=== PATIENT | female | born 1960 | race Caucasian/White ===

== ENCOUNTER 2016-06-08 04:18 | Inpatient (IN) | payer OTHER, MEDICARE ==
[~2016-06-08] VITALS: Ht 180.3 cm; Wt 113.4 kg
[~2016-06-08 04:18] MED LIST: ALPRAZOLAM0.25 M1 PO; COLACE100 M1 PO; COUMADIN5 M2 PO; HYDROMORPHONE HC2 M1 PO; LISINOPRIL20 M1 PO; MIRALAX17 G1 PO; SENNA8.6 M3 PO; TRAZODONE HCL50 M1 PO
--- NOTE | 2016-06-08 13:07 | Admission Core Measures ---
Admission Meds I reviewed the following Meds: Current Medications Sig/Montse Start time Last Medication Dose Stop Time Status Admin Alprazolam 0.125 MG QPM 06/08 2200 AC (Xanax) 06/15 2158 Lisinopril 20 MG QPM 06/08 220 AC (Prinivil) Ropivacaine 500 ML ONCE ONE 06/08 1030 AC (NAROPIN) 06/10 0409 ON-Q Ball 1 BAG Trazodone HCl 50 MG QPM 06/08 2199 AC (Desyrel) Vancomycin HCl 2,000 MG ONCE 06/08 0000 CAN Sodium Chloride 500 ML 06/08 2359 (Normal Saline 0.9%) Vancomycin HCl 2,000 MG ONCE 06/08 0000 NR Sodium Chloride 500 ML 06/08 235 (Normal Saline 0.9%) Acute Coronary Syndrome Inclusion Criteria ACS Diagnosis No Inpatient Core Measures LDL Reminder: If No, please order W/I first 24hr of stay Congestive Heart Failure Inclusion Criteria CHF Diagnosis No Cerebrovascular accident Inclusion Criteria CVA/TIA Diagnosis No Inpatient Core Measures Bedside Swallow Eval Reminder: If BSE failed, place ST order Antithrombotic Reminder: Order Antithrombotic Medication by end of day 2 Antithrombotic Reminder: Document Reason Antithrombotic Not ordered by end of day 2 AFIB/Flutter Reminder: If Present, add to problem list AFIB/Flutter Reminder: Order Anticoag Medication for pts with AFIB/Flutter Atherosclerosis Reminder: If Present, add to problem list LDL Reminder: If No, please order W/I first 24hr of stay PT Order Reminder: If No, please order Venous thromboembolism Inpatient Core Measures VTE Risk Factors: Age > 40, Surgery VTE Prophylaxis Ordered Inpt [facility] No [facility] VTE prophylaxis d/t No contraindications No VTE Pharm Prophylaxis d/t No contraindications Inclusion Criteria - Per Current guidelines, there needs to be overlap - treatment for the first 5 days of Warfarin therapy. - Parenteral Anticoagulation (IV or SC) needs to be - given along with Warfarin therapy. VTE Diagnosis No VTE Type NONE VTE Confirmed by (Test) NONE Problem List As ranked by this Provider includes Assessment & Plan 1. Unilateral primary osteoarthritis, left knee HOME MEDS Home Med List Alprazolam 0.25 MG TABLET 0.5 TAB PO QPM ANXIETY/SLEEP (Reported) Hydromorphone HCl (Dilaudid) 4 MG TABLET 1 TAB PO PRN PAIN (Reported) Hydromorphone HCl (Dilaudid) 8 MG TABLET 1 TAB PO QHS PAIN (Reported) Lisinopril 20 MG TABLET 1 TAB PO QPM BP (Reported) Trazodone HCl 50 MG TABLET 1 TAB PO QPM MENTAL HEALTH (Reported) Warfarin Sodium (Coumadin) 5 MG TABLET 1 TAB PO DAILY ANTICOAGULATION
[2016-06-08] MEDS ORDERED: COLACE100 M1 PO (13:09)
[2016-06-08] MEDS ORDERED: ASPIRIN EC81 M1 PO (13:10)
[2016-06-08] MEDS ORDERED: COUMADIN2.5 M1 PO (13:12)
[2016-06-08] MEDS ORDERED: PRILOSEC OTC20 M1 PO (13:12)
--- NOTE | 2016-06-08 13:48 | Patient Discharge Instructions ---
Discharge Instructions General Discharge Information You were seen/treated for: Left knee pain You had these procedures: Left total knee replacement Watch for these problems: Fevers greater than 101.5. Persistent vomiting for more than 8 hours. Shortness of breath or chest pain. Inability to bear weight whatsoever on your new knee replacement. Excessive draining from the wound that soaks your bandage. Increasing wound redness, or excessive swelling of the leg that was operated on that is not responding to ice, elevation, compression, or rest. Do not soak the wound: Yes No bath, but you may shower: Yes Other wound care: Your dressing is a waterproof silicon based dressing that will stay on for 7 days after your surgery. It is a sterile dressing that is infused with silver which helps to fight bacteria. Your home care nurse or physical therapist will remove it on postop day 7. You may shower as soon as you get home. Remove the Param wrap, but keep your dressing in place and let the water run over it. Again, it is a waterproof dressing so it should remain adherent to year skin despite getting wet in the shower. Dry off with a clean towel once done showering. Once the original dressing is removed, it can be replaced with a dry dressing as needed. Spots of blood on your original bandage are quite normal, but if it appears saturated your nurse may change it sooner than 7 days and you should call the office if this happens beyond 48 hours after the surgery. Your incision is closed with absorbable stitches which are hidden deep within the skin. The top layer of jie will be removed on postoperative day 14, most likely by your nurse or physical therapist. Your incision should be kept covered with a clean, dry bandage for 10-14 days. Do NOT use any creams, lotions, or ointments on your incision until you are told you can do so by Dr. Aggarwal's office. You may use an Param wrap as needed for compression and swelling. Special Instructions: PLEASE AWAIT SPECIFIC INSTRUCTIONS REGARDING YOUR DAILY DOSE OF COUMADIN PRIOR TO TAKING. THE DOSE MAY CHANGE DAILY BASED ON YOUR INR. YOUR INR WILL BE CHECKED TWICE WEEKLY. Diet Continue normal diet: Yes Recommended Diet: Regular Additional DIET Information: You may resume your normal diet whenever you choose. Drink plenty of fluids. Your pain medication may make you nauseous. This is a normal side effect of many pain medications. Activity Full Activity/No Limits: No Activity Self Limited: Yes Pounds, do NOT lift more than: 10 Additional ACTIVITY Info: On the day of surgery, or even the next day, you may feel lightheaded when you stand up. This is normal. Be sure to take a few minutes to steady yourself when you first sit up or stand. If you become lightheaded, simply lay down until the feeling passes. You may bear as much weight on your new knee replacement as your comfort allows. Use a rolling walker or crutches for the first 3 weeks postop for stability. You do not have any restrictions with your replaced knee. It is important to take short walks around her house, even if you are having discomfort. This will stretch out your muscles and actually make you feel better. Prolonged periods of inactivity will cause your thigh muscles to tighten up. Activity such as walking to the bathroom, going to the refrigerator, or even walking to the mailbox are actually good therapy! When you are not walking, be sure to keep your legs elevated to prevent excessive swelling. Acute Coronary Syndrome Inclusion Criteria At DC or during hospital stay patient has or had the following: ACS DIAGNOSIS No Discharge Core Measures Meds if any: Prescribed or Continued at Discharge Meds if any: NOT Prescribed or Continued at Discharge Congestive Heart Failure Inclusion Criteria At DC or during hospital stay patient has or had the following: CHF DIAGNOSIS No Discharge Core Measures Meds if any: Prescribed or Continued at Discharge Meds if any: NOT Prescribed or Continued at Discharge Cerebrovascular accident Inclusion Criteria At DC or during hospital stay patient has or had the following: CVA/TIA Diagnosis No Discharge Core Measures Meds if any: Prescribed or Continued at Discharge Meds if any: NOT Prescribed or Continued at Discharge Venous thromboembolism Inclusion Criteria VTE Diagnosis No VTE Type NONE VTE Confirmed by (Test) NONE Discharge Core Measures - Per Current guidelines, there needs to be overlap - treatment for the first 5 days of Warfarin therapy. - If discharged on Warfarin prior to 5 days of - overlap therapy, the patient will need to be - assessed for post discharge needs including - *Post discharge parental anticoagulation - *Warfarin and/or parental anticoagulation education - *Follow up date to check INR post discharge At least 5 days overlap therapy as Inpatient No Meds if any: Prescribed or Continued at Discharge Note: Overlap Therapy is Warfarin and Anticoagulant Meds if any: NOT Prescribed or Continued at Discharge
--- NOTE | 2016-06-08 13:51 | Surgical Discharge Summary ---
Visit Information Visit Dates Admission Date: 06/08/16 Discharge Date: 06/11/16 History of Present Illness Chief Complaint: Left knee pain Medical History Neurological: NONE EENT: NONE Cardiovascular: hypertension, hyperlipidemia, PROLAPSED MITRAL VALVE MURMUR Respiratory: asthma, obstructive sleep apnea Gastrointestinal: irritable bowel syndrome Hepatic: NONE Renal: NONE Musculoskeletal: NONE Psychiatric: NONE Endocrine: obesity Blood Disorders: NONE Cancer(s): PRE-CANCER UTERUS [employer]GE[employer] PRECINCT/Reproductive: NONE History of MRSA: No History of VRE: No History of CDIFF: No Pneumonia Vaccine: 05/30/13 Surgical History Pertinent Surgical History: non-contributory Psychosocial History Who Do You Live With? Patient/Self Services at Home: None What is Your Primary Language? Japanese Review of Systems: See H&P Hospital Course Course Attending Physician: THERESE MOON MD Primary Care Physician: CHELSEA HOLLEY MD Hospital Course: Patient was admitted on 06/08/2016 for an elective left total knee replacement. She tolerated the procedure well. She was transferred to a general surgical floor. Her diet was advanced and tolerated. Her vital signs are stable and within normal limits. She voided spontaneously. Her pain was well controlled. She was evaluated and treated by physical therapy and she was deemed appropriate for discharge. Allergies: Coded Allergies: Antihistamines - Alkylamine (Severe, TACHYCARDIA, MOUTH SWELLS 01/28/16) Antihistamines - Ethanolamine (Severe, TACHYCARDIA, MOUTH SWELLS 01/28/16) Antihistamines - Ethylenediamine (Severe, TACHYCARDIA, MOUTH SWELLS 01/28/16) Antihistamines - Piperazine (Severe, TACHYCARDIA, MOUTH SWELLS 01/28/16) Antihistamines - Piperidine (Severe, TACHYCARDIA, MOUTH SWELLS 01/28/16) Penicillins (mouth swells 01/23/16) propoxyphene (From DARVON) ( in family member 01/23/16) morphine (vomiting 01/28/16) oxycodone (From OXYCONTIN) (dizzines, vomiting 01/28/16) Disposition Summary Disposition Principal Diagnosis: Left knee unilateral primary osteoarthritis Additional Diagnosis: None Discharge Disposition: home health services Discharge Instructions General Discharge Information Code Status: Full Code Patient's Diet: Regular, advance as tolerated Patient's Activity: On the day of surgery, or even the next day, you may feel lightheaded when you stand up. This is normal. Be sure to take a few minutes to steady yourself when you first sit up or stand. If you become lightheaded, simply lay down until the feeling passes. You may bear as much weight on your new knee replacement as your comfort allows. Use a rolling walker or crutches for the first 3 weeks postop for stability. You do not have any restrictions with your replaced knee. It is important to take short walks around her house, even if you are having discomfort. This will stretch out your muscles and actually make you feel better. Prolonged periods of inactivity will cause your thigh muscles to tighten up. Activity such as walking to the bathroom, going to the refrigerator, or even walking to the mailbox are actually good therapy! When you are not walking, be sure to keep your legs elevated to prevent excessive swelling. Follow-Up Instructions/Appts: Follow-up will be in 6 weeks after discharge from the hospital or otherwise instructed. Call the office for fevers greater than 101.5, persistent vomiting for more than 8 hours, shortness of breath or chest pain, inability to bear weight whatsoever on your new knee replacement, excessive drainage from the wound that soaks your bandage, increased wound redness or excessive swelling of the leg that was operated on that is not responding to ice, elevation, compression, or rest. Medications at Discharge Discharge Medications: Stop taking the following medications: Warfarin Sodium (Coumadin) 5 MG TABLET ORAL DAILY Qty = 30 Hydromorphone HCl (Dilaudid) 4 MG TABLET ORAL as needed for PAIN Hydromorphone HCl (Dilaudid) 8 MG TABLET ORAL TAKE AT BEDTIME Continue taking these medications: Lisinopril (Lisinopril) 20 MG TABLET 1 Tablet ORAL Every night Comments: DOCUMENTED PER CMR DURING PRE-SX INTERVIEW Last Taken:01/30/16 Time: 900 AM Trazodone HCl (Trazodone HCl) 50 MG TABLET 1 Tablet ORAL Every night Comments: PREVIOUSLY NOTED 25MG PO QHS; DOCUMENTED PER CMR DURING PRE-SX INTERVIEW Last Taken:01/29/16 Time: 900 PM Alprazolam (Alprazolam) 0.25 MG TABLET 0.5 Tablet ORAL Every night Comments: PREVIOUSLY NOTED 0.25MG PO QPM; DOCUMENTED PER CMR DURING PRE-SX INTERVIEW Last Taken:01/29/16 Time: 900 PM Start taking the following new medications: Hydromorphone HCl (Dilaudid) 2 MG TABLET 1-2 Tablet ORAL Q3-4H as needed for PAIN Qty = 40 No Refills Docusate Sodium (Colace) 100 MG CAPSULE 1 Capsule ORAL TWICE DAILY Qty = 14 No Refills Instructions: DISCONTINUE USE IF YOU DEVELOP DIARRHEA OR LOOSE STOOL Aspirin (Ecotrin*) 81 MG TABLET.DR 1 Tablet ORAL TWICE DAILY Qty = 30 No Refills Instructions: DISCONTINUE USE WHEN INR IS GREATER THAN 1.8 Warfarin Sodium (Coumadin) 2.5 MG TABLET 1-3 Tablet ORAL DAILY Qty = 30 No Refills Instructions: PLEASE AWAIT SPECIFIC INSTRUCTIONS REGARDING DAILY DOSE PRIOR TO TAKING Omeprazole Magnesium (Prilosec Otc) 20 MG TABLET.DR 1 Tablet ORAL DAILY Qty = 30 No Refills Polyethylene Glycol 3350 (Miralax) 17 GRAM POWD.PACK 1 Packet ORAL DAILY Qty = 7 No Refills Instructions: dissolve in water, DISCONTINUE USE IF YOU DEVELOP LOOSE STOOL OR DIARRHEA
--- NOTE | 2016-06-08 15:30 | NUR ---
ARRIVED TO FLOOR FROM PACU. A & O X 3. VSS. C/O MINIMAL PAIN. ON Q PUMP IN PLACE TO LEFT ABDUCTOR CANAL AT 12ML/HR. +CMS TO LLE. YRN WRAP DSG IN PLACE, C/D/I. ON RA. PT STATES THAT SHE IS BEING FITTED FOR A CPAP MASK AND WOULD LIKE TO WEAR 2L AT BEDTIME BUT THAT SHE DOESNT CURRENTLY HAVE ANY AT HOME. ORIENTED TO CALL SYSTEM. ALPS PLACED. IVF INFUSING. WILL MONITOR.
[2016-06-08 15:32] VITALS: BP 114/78
--- NOTE | 2016-06-08 15:46 | PN- Orthopedic ---
Subjective Subjective: poc s/p left tka no major complaints now deneis cp, sob, no n+v ambulating to bathroom has voided urine Objective Vital Signs and I&Os vss Physical Exam: cv: rrr lungs: clear abd: soft, nt/nd ext: left distal cms grossly intact drsg dry onq in place voiding clear urine Assessment/Plan Assessment/Plan ortho stable plan coumadin/asa for dvt prophylaxis oob with pt/knee immobilizer with onq in place titrate pain meds prn home d/c planning Core Measures/Miscellaneous Venous Thromboembolism VTE Risk Factors: Age > 40, Obesity, Surgery VTE Contraindications: No Contraindications VTE Prophylaxis Ordered Inpt: Mech [facility] Pharm VTE Diagnosis: No VTE Type: NONE VTE Confirmed by (Test): NONE Beta Tiffany Is Beta Tiffany a Home Med? Yes Antibiotics Is Patient on Antibiotics? Yes
--- NOTE | 2016-06-08 16:10 | Operative Report ---
Operative/Inv Procedure Report Surgery Date: 06/08/16 Name of Procedure: Left complicated total knee replacement Pre-Operative Diagnosis: Left knee degenerative joint disease Obesity Post-Operative Diagnosis: Same Estimated Blood Loss: 50ml to 100ml Surgeon/Kitchen Steward: SARAI LOVE,THERESE Arriola PA-C Anesthesia: moderate sedation, block Operative/Procedure Note Note: Patient presented to the office with complaints of left knee pain she did demonstrate significant degenerative changes on the x-ray. He failed conservative treatments but did respond appropriately and after discussing options with the patient patient elected to proceed with left total knee replacement. Consent was obtained in the office. Preoperative antibiotics were given, preoperative timeouts were performed and preoperative spinal was administered prior to any incision. Patient was placed supine on the operating room table and prepped and draped in standard fashion. The leg was then exsanguinated and tourniquet inflated to 250 mmHg. Initial incision was made over the anterior aspect of the left knee dissection was carried down to the extensor was then incised using standard medial arthrotomy exposing the distal femur proximal tibia U. Using an intramedullary cutting jig the distal femur was cut at 5 valgus based on preoperative templating the tibia was then dislocated forward. Using an extra metric cutting pressure tibia was then cut at 90 to its mechanical axis with a 3 posterior slope and a 5 mm spacer block was then placed in the knee in full extension. There was no need for any further releases both medial laterally with a 5 mm block. Attention was then turned to flexion where sizing indicated that a size 5 would be appropriate for the femur. So a size 5 [place] block, laminar spreaders tensioned equally in the medial and lateral compartments, and a size 5 spacer block were then utilized to dial in appropriate femoral rotation. Anterior, posterior, notch, chamfer cuts were then performed. Size 5 femoral component was then placed and the size 6 rotating platform tray with a size 35 mm insert were then placed on the tibia. The knee was placed through range of motion patient did have excellent stability with this construct. Trials were then removed final preparation of the proximal tibia for the size 6 rotating platform insert was then performed and the patella was then prepared for a 35 mm medialized domed patella. Only surfaces were then thoroughly irrigated and dried. 2 bags of Simplex cement were stopped the back table and when it region appropriate viscosity was injected and finger packed and the proximal tibia to assure adequate cement penetration and the size 6 rotating platform insert was then cemented into place with care to remove any excess cement from around the implants using a [place]. The size 5 right femoral component was then placed and cemented in position again with care to remove any excess cement from around the implants using a [place] the trial size 35 mm insert was then placed in the knee and the 35 mm medialized domed patella was cemented into place. Once the cement cured any excess cement was removed from the implants using an osteotome the trial liner was then removed and final mentation a size 35 mm rotating platform insert was then placed and the knee reduced. Tourniquet was deflated at 41 minutes any excess bleeders were then cauterized. No drain was utilized today the arthrotomy was then closed using 0 Vicryl subcutaneous tissues using 2-0 Vicryl and skin using jie the patient was then dressed with Aquacel and transferred to the PACU in good condition.
[2016-06-08 17:43] VITALS: BP 130/56
[2016-06-08 19:36] VITALS: BP 124/82
[2016-06-08 22:31] VITALS: BP 112/76
[2016-06-09 01:34] VITALS: BP 116/72
[2016-06-09 05:30] VITALS: BP 120/80
--- NOTE | 2016-06-09 08:02 | PN- Orthopedic ---
Subjective Subjective: The patient was seen this morning postoperatively day #1. She still complains of significant incisional pain despite current pain regiment. She reports that she cannot take many pain medications due to excessive nausea but her pain management doctor recommended she try to take Vicodin. She had no other complaints at the current time and denied any chest pain or difficulty breathing. Objective Vital Signs and I&Os Vital Signs Date Time Temp Pulse Resp B/P Pulse O2 O2 Flow FiO2 Ox Delivery Rate 06/09 0530 97.4 69 20 120/80 98 Nasal 2.0L Cannula 06/09 0134 98.1 70 20 116/72 96 Nasal 2.0L Cannula 06/09 0000 Nasal 2.0L Cannula 06/08 2243 112/76 06/08 2231 98.3 66 20 112/76 93 Nasal Cannula 06/08 1936 98.1 74 20 124/82 94 Room Air 06/08 1743 97.7 62 20 130/56 92 Room Air 06/08 1532 97.4 54 18 114/78 93 Room Air Intake & Output 06/09 1600 06/09 0800 06/09 0000 06/08 1600 06/08 0800 06/08 0000 Intake Total 850 120 Output Total 1450 1450 100 Balance -600 -1330 -100 Intake, IV 600 Intake, Oral 250 120 Output, Urine 1450 1450 100 Patient 250 lb Weight Physical Exam: Gen.: Alert and in no obvious distress Skin: Warm and dry Extremities: Bilateral lower extremities are warm without calf tenderness. Gross motor and sensory are intact. Lower extremity surgical dressing is clean, dry, and intact without signs of infection. Assessment/Plan Assessment/Plan Assessment: 48-year-old female status post left total knee arthroplasty postoperative day #1. The patient is making slow but positive progression however pain is not adequately controlled at the current time. Plan: Will add by mouth Vicodin when necessary Out of bed with physical therapy patient is weightbearing as tolerated Follow-up morning laboratory studies and dose Coumadin for an INR between 2 and 3 Hep-Lock IV fluids GI and DVT prophylaxis Strict I's and O's Core Measures/Miscellaneous Venous Thromboembolism VTE Risk Factors: Age > 40, Obesity, Surgery VTE Contraindications: No Contraindications VTE Prophylaxis Ordered Inpt: Mech [facility] Pharm VTE Diagnosis: No VTE Type: NONE VTE Confirmed by (Test): NONE Beta Tiffany Is Beta Tiffany a Home Med? Yes Antibiotics Is Patient on Antibiotics? No
[2016-06-09 08:04] LABS: ABSOLUTE BASOPHIL COUNT 0 /CUMM (0.0-0.2); ABSOLUTE EOSINOPHIL COUNT 0 /CUMM (0.0-0.7); ABSOLUTE GRANULOCYTE CT 9.1 /CUMM (1.4-6.5); ABSOLUTE LYMPH COUNT 1.1 /CUMM (1.2-3.4); ABSOLUTE MONOCYTE COUNT 0.6 /CUMM (0.10-0.60); BASOPHIL % 0.3 % (0.0-2.0); EOSINOPHIL % 0 % (0-5); HEMATOCRIT 34.8 % (37-47); MEAN CORPUSCULAR HGB 28.1 PG (27.0-31.0); MEAN CORPUSCULAR HGB CONC 33.8 G/DL (33.0-37.0); MEAN CORPUSCULAR VOLUME 83.3 FL (81.0-99.0); MEAN PLATELET VOLUME 9.7 FL (7.4-10.4); RBC DISTRIBUTION WIDTH 14.5 % (11.5-14.5); RED BLOOD CELL CT 4.17 /CUMM (4.20-5.40); WHITE BLOOD CELL COUNT 10.8 /CUMM (4.8-10.8)
[2016-06-09 08:20] LABS: PT 11.8 SEC (9.4-12.5)
[2016-06-09 08:54] LABS: GRANULOCYTE % 84.4 % (42.2-75.2); PLATELET COUNT 184 /CUMM (130-400)
[2016-06-09 15:11] VITALS: BP 134/86
[2016-06-09 15:14] VITALS: BP 118/64
[2016-06-09 22:08] VITALS: BP 128/62
[2016-06-10 06:09] VITALS: BP 120/70
[2016-06-10 07:58] LABS: ABSOLUTE BASOPHIL COUNT 0 /CUMM (0.0-0.2); ABSOLUTE EOSINOPHIL COUNT 0.2 /CUMM (0.0-0.7); ABSOLUTE GRANULOCYTE CT 4.3 /CUMM (1.4-6.5); ABSOLUTE LYMPH COUNT 3.8 /CUMM (1.2-3.4); ABSOLUTE MONOCYTE COUNT 0.6 /CUMM (0.10-0.60); BASOPHIL % 0.4 % (0.0-2.0); EOSINOPHIL % 1.9 % (0-5); MEAN CORPUSCULAR HGB CONC 33.5 G/DL (33.0-37.0); MEAN CORPUSCULAR VOLUME 83.5 FL (81.0-99.0); MEAN PLATELET VOLUME 9.7 FL (7.4-10.4); RBC DISTRIBUTION WIDTH 14.5 % (11.5-14.5); RED BLOOD CELL CT 3.84 /CUMM (4.20-5.40); WHITE BLOOD CELL COUNT 8.9 /CUMM (4.8-10.8)
--- NOTE | 2016-06-10 08:16 | PN- Orthopedic ---
Subjective Subjective: POD #2 s/p L TKR. AVSS. No complaints offered. States she is leaving tomorrow. Ambulating with PT. Voiding spontaneously. Objective Vital Signs and I&Os Vital Signs Date Time Temp Pulse Resp B/P Pulse O2 O2 Flow FiO2 Ox Delivery Rate 06/10 0609 97.6 59 20 120/70 96 Nasal 2.0L Cannula 06/098 98.2 71 20 128/62 96 Nasal Cannula 06/09 2141 71 128/62 06/09 1514 98.8 64 20 118/64 95 06/09 1511 98.0 64 20 134/86 93 Intake & Output 06/10 1600 06/10 0800 06/10 0000 06/09 1600 06/09 0800 06/09 0000 Intake Total 120 500 800 850 120 Output Total 900 722 091 4900 1450 Balance -780 150 350 -600 -1330 Intake, IV 20 600 Intake, Oral 120 480 800 250 120 Output, Urine 900 873 861 8937 1450 Patient 250 lb Weight Physical Exam: Gen: AAOx3 in NAD Cor: S1+S2+ Lungs: CTA sandra Abd: soft, NT, ND, +Bs x4 Ext: Param wrap intact. dorsi and plantar flexion intact. Thigh, calf compartments soft and non-tender. Onq removed. Palpable DP pulse. Foot warm. Results Last 48 Hours of Labs: Laboratory Tests 06/10 06/09 0740 0640 Chemistry Sodium (137 - 145 mmol/L) 138 Potassium (3.5 - 5.1 mmol/L) 4.5 Chloride (98 - 107 mmol/L) 98 Carbon Dioxide (22 - 30 mmol/L) 28 Anion Gap (5 - 16) 12 BUN (7 - 17 mg/dL) 12 Creatinine (0.5 - 1.0 mg/dL) 0.5 Estimated GFR (>60 ml/min) > 60 BUN/Creatinine Ratio (7 - 25 %) 24.0 Coagulation PT (9.4 - 12.5 SEC) Pending 11.8 INR (0.90 - 1.19) Pending 1.13 Hematology CBC w Diff Pending NO MAN DIFF REQ WBC (4.8 - 10.8 /CUMM) Pending 10.8 RBC (4.20 - 5.40 /CUMM) Pending 4.17 L Hgb (12.0 - 16.0 G/DL) Pending 11.8 L Hct (37 - 47 %) Pending 34.8 L MCV (81.0 - 99.0 FL) Pending 83.3 MCH (27.0 - 31.0 PG) Pending 28.1 RDW (11.5 - 14.5 %) Pending 14.5 Plt Count (130 - 400 /CUMM) Pending 184 MPV (7.4 - 10.4 FL) Pending 9.7 Gran % (42.2 - 75.2 %) 84.4 H Lymphocytes % (20.5 - 51.1 %) 10.1 L Monocytes % (1.7 - 9.3 %) 5.2 Eosinophils % (0 - 5 %) 0 Basophils % (0.0 - 2.0 %) 0.3 Absolute Granulocytes (1.4 - 6.5 /CUMM) 9.1 H Absolute Lymphocytes (1.2 - 3.4 /CUMM) 1.1 L Absolute Monocytes (0.10 - 0.60 /CUMM) 0.6 Absolute Eosinophils (0.0 - 0.7 /CUMM) 0 Absolute Basophils (0.0 - 0.2 /CUMM) 0 PUBS MCHC (33.0 - 37.0 G/DL) Pending 33.8 Assessment/Plan Assessment/Plan A: POD #2 s/p L TKR. Plan: Patient cleared for home with services. Wants to be discharged tomorrow as she has help at home starting tomorrow. F/U am labwork. Will dose Coumadin based on INR. Aspirin therapy to stop once INR above 1.8. Continue physical therapy today. D/C tomorrow. Param wrap to be removed tomorrow prior to discharge. Core Measures/Miscellaneous Venous Thromboembolism VTE Risk Factors: Age > 40, Obesity, Surgery VTE Contraindications: No Contraindications VTE Prophylaxis Ordered Inpt: Mech & Pharm VTE Diagnosis: No VTE Type: NONE VTE Confirmed by (Test): NONE Beta Tiffany Is Beta Tiffany a Home Med? Yes Antibiotics Is Patient on Antibiotics? No
[2016-06-10 08:24] LABS: PT 13.7 SEC (9.4-12.5)
[2016-06-10 08:46] LABS: PLATELET COUNT 169 /CUMM (130-400)
[2016-06-10 14:35] VITALS: BP 136/64
[2016-06-10] MEDS ORDERED: SENNA8.6 M3 PO (17:36)
[2016-06-10] MEDS ORDERED: CELEBREX200 M1 PO (17:36)
[2016-06-10] MEDS ORDERED: VICODIN 5-3001 EACH PO (17:37)
[2016-06-10 22:50] VITALS: BP 130/78
[2016-06-11 06:41] VITALS: BP 120/70
--- NOTE | 2016-06-11 07:58 | PN- Orthopedic ---
Subjective Subjective: No acute overnight events reported, is concerned about pain management at home but feels that vicodin and toradol has been managing her here. Denies chest pain, shortness of breath and difficulty breathing. Denies nausea and vomitting. Is eager for discharge to home today Objective Vital Signs and I&Os Vital Signs Date Time Temp Pulse Resp B/P Pulse O2 O2 Flow FiO2 Ox Delivery Rate 06/11 0641 97.7 62 20 120/70 97 Nasal 2.0L Cannula 06/10 2250 97.8 64 20 130/78 93 Room Air 06/10 2225 64 130/78 06/10 1435 98.0 65 20 136/64 95 Intake & Output 06/11 0800 06/11 0000 06/10 1600 06/10 0800 06/10 0000 06/09 1600 Intake Total 260 600 120 500 800 Output Total 1150 900 350 450 Balance -890 600 -780 150 350 Intake, IV 20 20 Intake, Oral 240 600 120 480 800 Output, Urine 1150 900 350 450 Physical Exam: General: Alert and oriented x3, no acute distress Cardiac: RRR, s1s2 Pulmonary: Bialteral lung sounds clear to ausculatation Abdomen: Non-tender, non-distended Extremities: Moves all extremities, distal sensation intact. Motor 5/5 in plantar an dorsi flexion. Skin warm and well perfused. DP pulses palpable bilaterally. Bilateral calves soft, non-tender, no redness or erythema noted. Mild-moderate joint effusion appreciated to operative knee, dressing dry and intact. Assessment/Plan Assessment/Plan This is a 56 year old female, pod 3, s/p left total knee replacement. Plan for dc to home today -Continue vicodin for pain management -Add celebrex for dc home -Continue diet as tolerated -Continue coumadin, target INR 1.8-2.3 -Plan for dc to home today Core Measures/Miscellaneous Venous Thromboembolism VTE Risk Factors: Age > 40, Obesity, Surgery VTE Contraindications: No Contraindications VTE Prophylaxis Ordered Inpt: Mech & Pharm VTE Diagnosis: No VTE Type: NONE VTE Confirmed by (Test): NONE Beta Tiffany Is Beta Tiffany a Home Med? Yes Antibiotics Is Patient on Antibiotics? No
[2016-06-11 08:29] LABS: ABSOLUTE BASOPHIL COUNT 0 /CUMM (0.0-0.2); ABSOLUTE EOSINOPHIL COUNT 0.1 /CUMM (0.0-0.7); ABSOLUTE GRANULOCYTE CT 3.2 /CUMM (1.4-6.5); ABSOLUTE LYMPH COUNT 3.5 /CUMM (1.2-3.4); ABSOLUTE MONOCYTE COUNT 0.5 /CUMM (0.10-0.60); BASOPHIL % 0.5 % (0.0-2.0); EOSINOPHIL % 1.2 % (0-5); GRANULOCYTE % 44.1 % (42.2-75.2); HEMATOCRIT 33.3 % (37-47); MEAN CORPUSCULAR HGB 28.5 PG (27.0-31.0); MEAN CORPUSCULAR HGB CONC 33.8 G/DL (33.0-37.0); MEAN CORPUSCULAR VOLUME 84.3 FL (81.0-99.0); MEAN PLATELET VOLUME 10.4 FL (7.4-10.4); PLATELET COUNT 194 /CUMM (130-400); RBC DISTRIBUTION WIDTH 14.7 % (11.5-14.5); RED BLOOD CELL CT 3.95 /CUMM (4.20-5.40); WHITE BLOOD CELL COUNT 7.3 /CUMM (4.8-10.8)
[2016-06-11 08:42] LABS: PT 16.3 SEC (9.4-12.5)
--- NOTE | 2016-06-11 10:18 | ULTRASOUND REPORT ---
EXAMINATION: US TRIPLEX LOWER EXTREMITY, BILATERAL CLINICAL INFORMATION: Postoperative bilateral lower extremity edema and swelling and bilateral lower extremity calf tenderness COMPARISON: None. TECHNIQUE: Color-flow triplex imaging with spectral analysis and compression Doppler were performed on the bilateral lower extremities. FINDINGS: Respiratory variation, normal compression and augmented flow are noted throughout the bilateral lower extremities. The visualized common femoral vein, superficial femoral vein, profunda femoral vein, popliteal vein and mid calf peroneal and posterior tibial venous segments show no evidence of deep venous thrombosis. There is no Chen's cyst. IMPRESSION: Normal triplex scan without evidence of deep venous thrombosis involving the bilateral lower extremities.
[2016-06-11] MEDS ORDERED: DILAUDID8 M1 PO (13:08)
[2016-06-11] MEDS ORDERED: DILAUDID4 M1 PO (13:08)
== END 2016-06-11 14:10 | disposition home health service (06) | DRG 470 ==
LOC: ENPENDDIS 04:18 → SDA 04:18 → 2NA 04:18
PROVIDERS: Nurse Practitioner; Physician Assistant Surgical; ADMIT Orthopaedic Surgery
PROC: 0SRD0J9 Replacement of Left Knee Joint with Synthetic Substitute, Cemented, Open Approach (ICD-10-PCS; principal; 2016-06-08)
DX: M17.12 Unilateral primary osteoarthritis, left knee (principal); I10 Essential (primary) hypertension; E66.9 Obesity, unspecified; Z68.34 Body mass index [BMI] 34.0-34.9, adult; E78.5 Hyperlipidemia, unspecified; J45.909 Unspecified asthma, uncomplicated; K58.9 Irritable bowel syndrome, unspecified; G47.30 Sleep apnea, unspecified; I34.1 Nonrheumatic mitral (valve) prolapse
CPT/HCPCS: 2NAP; 36415; 82436; 88305; 93970; 97110-GO; 97116-GO; 97161-GP; 97530-GO; C1713; C9290; J0131; J1200; J1885; J2405; J2550; J2795; J3370; J3490; J7040